=== PATIENT | female | born 1990 | race Caucasian/White ===

== ENCOUNTER 2018-03-03 16:00 | Emergency (ER) | payer SELFPAY ==
[~2018-03-03] VITALS: Ht 167.6 cm; Wt 102.1 kg
--- NOTE | 2018-03-03 16:00 | NUR ---
pt bib ra 85 from [place]. pt combative, non cooperative, no telling her name or complain at this time.
[2018-03-03] MEDS ORDERED: HALOPERIDOL LACTATE 5 MG/1 ML VIAL ONE (16:06)
[2018-03-03] MEDS ORDERED: LORAZEPAM 2 MG/1 ML VIAL ONE (16:06)
[2018-03-03] MEDS ORDERED: LORAZEPAM 2 MG/1 ML VIAL IM ONE (16:15)
[2018-03-03] MEDS ORDERED: HALOPERIDOL LACTATE 5 MG/1 ML VIAL IM ONE (16:15)
[2018-03-03 16:36] LABS: BASOPHILS # (AUTO) 0.1 K/uL (0.0-8.0); BASOPHILS % (AUTO) 1.3 % (0.0-2.0); EOSINOPHILS # (AUTO) 0.2 K/uL (0.0-0.7); EOSINOPHILS % (AUTO) 2.2 % (0.0-7.0); HEMATOCRIT 39.3 % (31.2-41.9); HEMOGLOBIN 13.5 g/dL (10.9-14.3); LYMPHOCYTES # (AUTO) 2.8 K/uL (20.0-40.0); LYMPHOCYTES % (AUTO) 36.1 % (20.5-51.5); MEAN CORPUSCULAR HEMOGLOBIN 29.5 uug (24.7-32.8); MEAN CORPUSCULAR HGB CONC 34 g/dL (32.3-35.6); MONOCYTES # (AUTO) 0.5 K/uL (2.0-10.0); MONOCYTES % (AUTO) 6.3 % (0.0-11.0); NEUTROPHILS # (AUTO) 4.2 K/uL (1.8-8.9); NEUTROPHILS % (AUTO) 54.1 % (38.5-71.5); PLATELET COUNT (AUTO) 147 K/uL (179-408); RED BLOOD CELL COUNT(AUTO) 4.57 MIL/uL (3.63-4.92); WHITE BLOOD COUNT (AUTO) 7.8 K/uL (3.8-11.8)
[2018-03-03 16:57] LABS: ETHANOL 138 MG/DL (0-0)
[2018-03-03 16:58] LABS: ALANINE AMINOTRANSFERASE 293 U/L (14-59); ALKALINE PHOSPHATASE 97 U/L (50-136); ASPARTATE AMINOTRANSFERASE 292 U/L (15-37); BILIRUBIN,DIRECT 0.8 mg/dL (0.0-0.2); BILIRUBIN,TOTAL 2.7 mg/dL (0.2-1.0); CARBON DIOXIDE 22 mmol/L (21-32); CHLORIDE 99 mmol/L (98-107); CREATININE 0.7 mg/dL (0.6-1.3); GLUCOSE 132 mg/dL (74-106); TOTAL PROTEIN, SERUM 7.3 g/dL (6.4-8.2); UREA NITROGEN, BLOOD 7 mg/dL (7-18)
[2018-03-03 17:04] LABS: POTASSIUM 2.7 mmol/L (3.5-5.1)
[2018-03-03 17:12] LABS: ACETAMINOPHEN 4.3 ug/mL (10-30)
[2018-03-03] MEDS ORDERED: POTASSIUM CHLORIDE 20 MEQ TAB.PRT.SR PO ONE (17:15)
[2018-03-03] MEDS ORDERED: POTASSIUM CHLORIDE 20 MEQ TAB.PRT.SR ONE (19:52)
--- NOTE | 2018-03-03 19:57 | NUR ---
Pt awoke, asked for a blanket and if she can have restraints released. MD notified. Released restraints, able to stand, but has unsteady gait.
--- NOTE | 2018-03-03 20:30 | NUR ---
Pt sleeping, no acute signs of distress.
--- NOTE | 2018-03-03 21:26 | NUR ---
Pt sleeping, no acute signs of distress.
--- NOTE | 2018-03-03 21:58 | NUR ---
Pt sleeping in bed, refusing to want to try to stand up and walk, no acute signs of distress.
--- NOTE | 2018-03-03 22:19 | NUR ---
Security called to assist patient in standing due to patient refusing to get out of bed. Patient discharged to home in stable conditon. Written and verbal after care instructions given. Patient verbalizes understanding of instructions. Pt ambulated out of ER with steady gait, VSS, no acute signs of distress, all belongings taken.
[2018-03-03 22:21] VITALS: BP 115/61
== END 2018-03-03 22:21 | disposition home or self-care (01) ==
LOC: ER 16:00
DX: F10.129 Alcohol abuse with intoxication, unspecified (principal); E87.6 Hypokalemia
CPT/HCPCS: 36415; 80048; 80076; 85025; 96372 ×2; 99284; G0480 ×2; G0481; J1630; J2060; A4663